=== PATIENT | male | born 1955 | race Two or more races ===

== ENCOUNTER 2020-12-16 13:08 | Emergency (ER) | payer MEDICAID, OTHER ==
[~2020-12-16] VITALS: Ht 182.9 cm; Wt 72.6 kg
[2020-12-16] MEDS ORDERED: cefTRIAXone SOD 1,000 MG VL IM ONE (13:45)
[2020-12-16 13:50] VITALS: BP 95/72
== END 2020-12-16 14:21 | disposition home or self-care (01) ==
LOC: ER 13:08
DX: L02.213 Cutaneous abscess of chest wall (principal)
CPT/HCPCS: 10060; 87205; 96372; 99283; J0696; 87077; 87186

== ENCOUNTER 2020-12-18 13:27 | Emergency (ER) | payer MEDICAID ==
[~2020-12-18] VITALS: Ht 182.9 cm; Wt 74.8 kg
[2020-12-18] MEDS ORDERED: ALPRAZolam 0.5 MG TAB PO ONE (16:15)
[2020-12-18 16:38] VITALS: BP 118/67
== END 2020-12-18 16:43 | disposition home or self-care (01) ==
LOC: ER 13:27
DX: L02.213 Cutaneous abscess of chest wall (principal); F41.9 Anxiety disorder, unspecified

== ENCOUNTER 2020-12-22 18:10 | Emergency (ER) | payer MEDICAID ==
[~2020-12-22] VITALS: Ht 182.9 cm; Wt 74.8 kg
[2020-12-22 19:45] VITALS: BP 116/67
== END 2020-12-22 19:54 | disposition home or self-care (01) ==
LOC: ER 18:11
DX: Z48.01 Encounter for change or removal of surgical wound dressing (principal); L02.213 Cutaneous abscess of chest wall; F41.9 Anxiety disorder, unspecified; K21.9 Gastro-esophageal reflux disease without esophagitis; Z88.8 Allergy status to other drugs, medicaments and biological substances

== ENCOUNTER 2020-12-25 07:30 | Emergency (ER) | payer MEDICAID ==
[~2020-12-25] VITALS: Ht 182.9 cm; Wt 86.2 kg
[2020-12-25 07:42] VITALS: BP 129/81
== END 2020-12-25 08:06 | disposition home or self-care (01) ==
LOC: ER 07:30
DX: L02.213 Cutaneous abscess of chest wall (principal); K21.9 Gastro-esophageal reflux disease without esophagitis; Z91.048 Other nonmedicinal substance allergy status

== ENCOUNTER 2021-01-03 15:53 | Emergency (ER) | payer MEDICAID ==
[~2021-01-03] VITALS: Ht 182.9 cm; Wt 74.8 kg
[2021-01-03 21:55] LABS: Basophils # (auto) 0 10 ^3/uL (0-0.2); Basophils % (auto) 0.5 % (0.0-2.0); Eosinophils # (auto) 0.2 10 ^3/uL (0-0.8); Eosinophils % (auto) 1.8 % (0.0-7.0); Hematocrit 40.7 % (41.0-53.0); Hemoglobin 14.1 g/dL (13.5-17.5); Lymphocytes # (auto) 2.2 10 ^3/uL (0.4-5.4); Lymphocytes % (auto) 25.7 % (10.0-50.0); Mean Corpuscular Hemoglobin 31.3 pg (28.0-32.0); Mean Corpuscular Hgb Conc. 34.7 g/dL (32.0-36.0); Mean Corpuscular Volume 90.2 fL (80.0-100.0); Monocytes # (auto) 0.8 10 ^3/uL (0-1.3); Neutrophils # (auto) 5.5 10 ^3/uL (1.6-8.6); Platelet Count (auto) 209 10^3/uL (140-450); Red Blood Cells 4.51 10^6/uL (4.5-5.90); Red Cell Distribution Width 14.4 % (11.8-14.3); White Blood Cell 8.7 10^3/uL (4.4-10.8)
[2021-01-03 22:10] LABS: Albumin 3.4 g/dL (3.4-5.0); Calcium 8.4 mg/dL (8.5-10.1)
[2021-01-03 22:17] LABS: BUN/Creatinine Ratio 13.2; Bilirubin, Total 0.3 mg/dL (0.2-1.0); Total Protein 8.2 g/dL (6.4-8.2)
[2021-01-03] MEDS ORDERED: IOHEXOL 300 MG/ML 100ML BOTTLE IJ ONE (23:22)
[2021-01-04 02:00] VITALS: BP 130/73
[2021-01-04] MEDS ORDERED: MORPHINE SULF INJ 2 MG/ML SYRINGE 1ML IV ONE (02:15)
[2021-01-04] MEDS ORDERED: ONDANSETRON HCL 4 MG/2 ML VIAL IV ONE (02:15)
[2021-01-04] MEDS ORDERED: CLINDAMYCIN 300MG IV 50 ML IV ONE (02:15)
[2021-01-04] MEDS ORDERED: SODIUM CHLORIDE 0.9% 1,000 ML IV ONE (02:45)
== END 2021-01-04 04:41 | disposition home or self-care (01) ==
LOC: ER 15:53
DX: L03.311 Cellulitis of abdominal wall (principal); R10.9 Unspecified abdominal pain; R00.1 Bradycardia, unspecified; K21.9 Gastro-esophageal reflux disease without esophagitis; F41.9 Anxiety disorder, unspecified
CPT/HCPCS: 36415; 74177; 80053; 82150; 83605; 83690; 84484; 85025; 87040; 93005; 96361; 96365; 96375; 99285; J2270; J2405; J3490; J7030; Q9967